=== PATIENT | female | born 1955 | race Caucasian/White ===

== ENCOUNTER 2022-01-17 14:33 | Outpatient (CLI) | payer MEDICARE | END 2022-01-17 14:34 | disposition home or self-care (01) | LOC: CSHMAMMO 14:33 | PROVIDERS: ATTEND Family Medicine | DX: Z12.31 Encounter for screening mammogram for malignant neoplasm of breast (principal); Z91.89 Other specified personal risk factors, not elsewhere classified | CPT/HCPCS: 77063; 77067 ==

== ENCOUNTER 2022-01-20 14:27 | Outpatient (CLI) | payer MEDICARE | END 2022-01-20 14:28 | disposition home or self-care (01) | LOC: CSHULT 14:27 | PROVIDERS: ATTEND Family Medicine | DX: G43.909 Migraine, unspecified, not intractable, without status migrainosus (principal); R55 Syncope and collapse | CPT/HCPCS: 93880 ==

== ENCOUNTER 2022-06-20 06:24 | Day surgery (SDC) | payer MEDICARE ==
[2022-06-19 15:03] VITALS: BMI 20.2
[2022-06-20] MEDS ORDERED: PROPOFOL 20 ML ONE (08:26)
[2022-06-20] MEDS ORDERED: Lidocaine 1% PF 5 ML VIAL ONE (08:26)
== END 2022-06-20 09:40 | disposition home or self-care (01) ==
LOC: CSHSDC 06:24
PROVIDERS: ATTEND Internal Medicine Gastroenterology
PROC: 0DJ08ZZ Inspection of Upper Intestinal Tract, Via Natural or Artificial Opening Endoscopic (ICD-10-PCS; principal; 2022-06-20)
DX: K21.9 Gastro-esophageal reflux disease without esophagitis (principal); K44.9 Diaphragmatic hernia without obstruction or gangrene; K29.70 Gastritis, unspecified, without bleeding; J44.9 Chronic obstructive pulmonary disease, unspecified; R63.4 Abnormal weight loss; R63.0 Anorexia; Z86.010 Personal history of colon polyps; Z88.7 Allergy status to serum and vaccine; Z68.20 Body mass index [BMI] 20.0-20.9, adult
CPT/HCPCS: J2704